=== PATIENT | male | born 1975 | race Caucasian/White ===

== ENCOUNTER → 2022-06-16 | Outpatient (CLI) | payer SELFPAY ==
[~2022-06-16] MED LIST: ALDACTONE25 MG PO; Amaryl2 MG PO; ENTRESTO 24 MG1 EACH PO; FARXIGA10 M1 PO; LIPITOR80 MG PO; MAGNESIUM400 M1 PO; METOPROLOL SUC100 M2 PO; TRULICITY1.5 MG/0.5 SC
[2022-06-16 11:25] LABS: CHOLESTEROL 103 mg/dL (<200); LDL CHOLESTEROL 30 mg/dL (9-159); TRIGLYCERIDES 183 mg/dl (<150)
== END | disposition home or self-care (01) ==
LOC: CARD 01:05 → LAB 01:05 → CARD 10:00
PROVIDERS: Family Medicine; ATTEND Internal Medicine Cardiovascular Disease
DX: Z02.1 Encounter for pre-employment examination (principal); R79.89 Other specified abnormal findings of blood chemistry; R53.83 Other fatigue; E78.5 Hyperlipidemia, unspecified; R74.8 Abnormal levels of other serum enzymes; E55.9 Vitamin D deficiency, unspecified